=== PATIENT | female | born 1990 | race Two or more races ===

== ENCOUNTER 2023-07-25 08:53 | Emergency (ER) | payer OTHER ==
[~2023-07-25] VITALS: Ht 157.5 cm; Wt 63.5 kg
[2023-07-25 10:47] LABS: PH,URINE 5.5 (5.0-8.0); URINE APPEARANCE Cloudy; URINE BILIRRUBIN Moderate (NEGATIVE); URINE BLOOD Moderate; URINE COLOR Orange; URINE LEUKOCYTE Moderate; URINE NITRATE Positive
[2023-07-25 10:51] LABS: URINE EPITHELIAL CELLS 65.3 uL (0.0-38.8); URINE WBC 283.4 uL (0.0-23.2)
[2023-07-25 10:59] LABS: HEMATOCRIT 38.2 % (36.0-45.00); HEMOGLOBIN 13.8 g/dL (12.0-15.00); MEAN CELL VOLUME 86.5 fL (80.00-100.00); MEAN CORPUSCULAR HEMOGLOBIN 31.2 pg (27.00-32.0); PLATELET COUNT 166 K/uL (150-450); RED BLOOD COUNT 4.41 M/uL (4.00-6.00); RED CELL DISTRIBUTION WIDTH 14.6 % (11.5-14.5)
[2023-07-25 11:15] LABS: URINE GLUCOSE 100 MG/DL (NEGATIVE); URINE PROTEIN 100 (NEGATIVE)
[2023-07-25 11:24] LABS: CALCIUM 8.6 mg/dL (8.5-10.1); CREATININE SERUM 0.72 mg/dL (0.55-1.02); GFR 92.72; POTASSIUM 3.41 mEq/L (3.5-5.1)
== END 2023-07-25 14:42 | disposition home or self-care (01) ==
LOC: ER 08:53
PROVIDERS: Emergency Medicine
DX: N39.0 Urinary tract infection, site not specified (principal); Z88.8 Allergy status to other drugs, medicaments and biological substances

== ENCOUNTER → 2023-08-21 | Emergency (ER) | payer OTHER ==
[~2023-08-21] VITALS: Ht 157.5 cm; Wt 61.2 kg
[~2023-08-21] MED LIST: ABILIFY5 MG PO; EFFEXOR XR37.5 MG PO; JUNEL 1.5 MG-31 EACH PO; LAMOTRIGINE25 MG PO; PAXLOVID 300-11 EAC1 PO; [UNRECOGNIZED DRUG - OTHER] PO
== END | disposition home or self-care (01) ==
LOC: ER 19:34
DX: U07.1 COVID-19 (principal)

== ENCOUNTER 2024-05-02 10:13 | Emergency (ER) | payer OTHER ==
[~2024-05-02] VITALS: Ht 157.5 cm; Wt 65.8 kg
[2024-05-02] MEDS ORDERED: ADDERALL 20 MG20 MG (10:27)
[2024-05-02] MEDS ORDERED: ORPHENADRINE CITRATE 30 MG/ML AMPUL IM STA (13:34)
== END 2024-05-02 13:46 | disposition home or self-care (01) ==
LOC: ER 10:15
DX: S09.8XXA Other specified injuries of head, initial encounter (principal); X58.XXXA Exposure to other specified factors, initial encounter; Y93.89 Activity, other specified; Y92.89 Other specified places as the place of occurrence of the external cause; Y99.8 Other external cause status; Z88.6 Allergy status to analgesic agent

== ENCOUNTER 2024-05-22 08:01 | Emergency (ER) | payer OTHER ==
[~2024-05-22] VITALS: Ht 157.5 cm; Wt 61.2 kg
[~2024-05-22 08:01] MED LIST changes: +ADDERALL 20 MG20 MG
[2024-05-22] MEDS ORDERED: DEXAMETHASONE SODIUM PHOSPHATE 4 MG/ML VIAL IV STA (08:46)
[2024-05-22] MEDS ORDERED: CEFTRIAXONE SODIUM 1,000 MG VIAL IV ONE (09:00)
== END 2024-05-22 11:04 | disposition home or self-care (01) ==
LOC: ER 08:03
DX: L73.2 Hidradenitis suppurativa (principal); Z88.8 Allergy status to other drugs, medicaments and biological substances
CPT/HCPCS: 96365; 99282; J0696; J1100